=== PATIENT | female | born 1930 | race Two or more races ===

== ENCOUNTER 2019-07-15 11:05 | Inpatient (IN) | payer OTHER ==
[~2019-07-15] VITALS: Ht 152.4 cm; Wt 54.4 kg
--- NOTE | 2019-07-15 11:14 | NUR ---
PTE ALERTA Y ORIENTADA. LLEGA A ILDA DE EMERGENCIAS EN AMBULANCIA ACOMPANADA DE FAMILIAR Y PARAMEDICO. FAMILIAR DE PACIENTE REFIERE QUE LA PACIENTE LLEGA A ILDA DE EMERGENCIAS YA QUE PRESENTO ALMITA CONVULSION A LAS 0940. FAMILIAR DE PACIENTE REFIERE QUE HACE DOS SEMANAS LA PACIENTE SUFRIO UN DERRAME CEREBRAL.
--- NOTE | 2019-07-15 14:36 | NUR ---
MS LOAIZA ORIENTA A PACIENTE Y FAMILIAR SOBRE ORDENES MEDICAS. COLECTA MUESTRAS DE LABORATORIO ORDENADAS BAJO MEDIDAS ASEPTICAS. PENDIENTE A RESULTADOS DE LABORATORIO Y LECTURA DE CT SCAN PARA RE-EVALUACION MEDICA.
--- NOTE | 2019-07-16 00:25 | NUR ---
SE RECIBE PTE ALERTA Y ORIENTADA X3 EN CAMA CON BARANDAS ELEVADAS. SE RECIBE PTE CONECTADA A MONITOR CARDIACO Y OXIMETRIA. SE RECIBE PTE CANALIZADA ARAEA NOE DE EDEMA Y DE ENROJECIMIENTO. PTE EN ESPERA DE RE EVALUACION MEDICA.
--- NOTE | 2019-07-16 07:19 | NUR ---
PACIENTE ALERTA Y ORIENTADA EN PERSONA, PRESENTA BUEN PATRON RESPIRATORIO Y NOE DE DOLOR. RECIBIENDO 0.9% NSS A 150 ML/HR, VENOPUNCION PATENTE Y NOE DE S/S DE FLEBITIS E INFILTRACION, PENDIENTE EVALUACION MEDICINA INTERNA CON E SEPULVEDA POR UTI Y DESHIDRATACION.
[2019-07-25] MEDS ORDERED: LEVAQUIN750 MG PO (09:20)
[2019-07-25] MEDS ORDERED: LOSARTAN-HCTZ1 EAC2 PO (09:27)
[2019-07-25] MEDS ORDERED: CARVEDILOL25 MG PO (09:27)
[2019-07-25] MEDS ORDERED: CLOPIDOGREL BIS75 MG PO (09:27)
[2019-07-25] MEDS ORDERED: KEPPRA500 MG PO (09:27)
[2019-07-25] MEDS ORDERED: BENADRYL50 MG PO (09:30)
== END 2019-07-25 13:34 | disposition home or self-care (01) | DRG 69 ==
LOC: ER 11:05 → MEDJ 07-16 11:00
PROVIDERS: ADMIT Internal Medicine
PROC: 0T9B70Z Drainage of Bladder with Drainage Device, Via Natural or Artificial Opening (ICD-10-PCS; 2019-07-16)
PROC: 4A12X4Z Monitoring of Cardiac Electrical Activity, External Approach (ICD-10-PCS; 2019-07-16)
PROC: 30233N1 Transfusion of Nonautologous Red Blood Cells into Peripheral Vein, Percutaneous Approach (ICD-10-PCS; 2019-07-17)
PROC: 4A033R1 Measurement of Arterial Saturation, Peripheral, Percutaneous Approach (ICD-10-PCS; 2019-07-18)
PROC: 3E0F7GC Introduction of Other Therapeutic Substance into Respiratory Tract, Via Natural or Artificial Opening (ICD-10-PCS; 2019-07-18)
PROC: BB24ZZZ Computerized Tomography (CT Scan) of Bilateral Lungs (ICD-10-PCS; 2019-07-19)
PROC: 0W9930Z Drainage of Right Pleural Cavity with Drainage Device, Percutaneous Approach (ICD-10-PCS; principal; 2019-07-20)
PROC: B246ZZZ Ultrasonography of Right and Left Heart (ICD-10-PCS; 2019-07-20)
DX: I67.82 Cerebral ischemia (principal); J96.01 Acute respiratory failure with hypoxia; I50.31 Acute diastolic (congestive) heart failure; N17.8 Other acute kidney failure; N39.0 Urinary tract infection, site not specified; G40.802 Other epilepsy, not intractable, without status epilepticus; I69.351 Hemiplegia and hemiparesis following cerebral infarction affecting right dominant side; B37.0 Candidal stomatitis; J90 Pleural effusion, not elsewhere classified; E87.2 Acidosis; J98.11 Atelectasis; I30.8 Other forms of acute pericarditis; I35.0 Nonrheumatic aortic (valve) stenosis; I11.0 Hypertensive heart disease with heart failure; I69.322 Dysarthria following cerebral infarction; I65.21 Occlusion and stenosis of right carotid artery; D63.8 Anemia in other chronic diseases classified elsewhere; R55 Syncope and collapse; E86.0 Dehydration; E87.8 Other disorders of electrolyte and fluid balance, not elsewhere classified; N39.8 Other specified disorders of urinary system; F43.22 Adjustment disorder with anxiety; Z66 Do not resuscitate

== ENCOUNTER 2019-11-12 09:38 | Inpatient (IN) | payer OTHER ==
[~2019-11-12] VITALS: Ht 154.9 cm; Wt 54.4 kg
[~2019-11-12 09:38] MED LIST: BENADRYL50 MG PO; CARVEDILOL25 MG PO; CLOPIDOGREL BIS75 MG PO; KEPPRA500 MG PO; LEVAQUIN750 MG PO; LOSARTAN-HCTZ1 EAC2 PO
[2019-11-12] MEDS ORDERED: FOLIC ACID0.8 M1 (09:54)
[2019-11-12] MEDS ORDERED: CRESTOR20 MG (09:55)
[2019-11-12] MEDS ORDERED: AMLODIPINE-OLM1 EAC3 (09:55)
--- NOTE | 2019-11-12 09:55 | NUR ---
FAMILIAR REFIERE DOLOR ABDOMINAL SANGRADO RECTAL DESDE ESTA MANANA SE JATIN S/V YSE UBIAC EN AREA DE OBSERVACION
--- NOTE | 2019-11-12 10:47 | NUR ---
EVALUADA POR EL SE ORIENTA SOBRE TRATAMIENTO MEDICO POR LE EXTRAE MUESTRAS DE RAMYA Y SE ENVIAN AL LABORATORIO. SE MANTIENE EN OBSERVACION.
--- NOTE | 2019-11-12 15:20 | NUR ---
PACIENTE ALERTA Y ORIENTADA POR REINA ESFERAS EN CAMA EN COMPANIA DE FAMILIAR. SE OBSERVA H/L PATENTE NOE DE EDEMA Y ENROJECIMIENTO. PENDIENTE ROHIT MUESTRA DE OCCULT BLOOD PARA RE-EVALUACION MEDICA.
--- NOTE | 2019-11-12 15:47 | NUR ---
SE ORIENTA PTE SOBRE MUESTRA PENDIENTE.SE EXTRAE MUESTRA BAJO MEDIDAS ASEPTICAS.
--- NOTE | 2019-11-12 16:46 | NUR ---
NOTA SE NOTIFICO AL S/V B/P 180/60 PULSO 97 RES.16 TEMP.99.1. NO TIENE DOLOR Y OXIGENACION 98 LUZ MARIA SANTOS LPN.
--- NOTE | 2019-11-12 16:53 | NUR ---
SE JATIN TUBOS PILOTOS PARA 3 UNIDADES DE PRBC'S FRACCIONADAS. SE LLAMA A BANCO DE RAMYA Y SE NOTIFICA A MR. JAYY ELDRIDGE PARA RECOGER TUBOS PILOTOS.
[2019-11-18] MEDS ORDERED: PROTONIX40 MG PO (08:02)
[2019-11-18] MEDS ORDERED: SEROQUEL25 MG PO (08:02)
== END 2019-11-18 11:36 | disposition home or self-care (01) | DRG 378 ==
LOC: ER 09:38 → SURH 20:29
PROVIDERS: ADMIT Student in an Organized Health Care Education/Training Program
PROC: 30233N1 Transfusion of Nonautologous Red Blood Cells into Peripheral Vein, Percutaneous Approach (ICD-10-PCS; 2019-11-13)
PROC: 0DJ08ZZ Inspection of Upper Intestinal Tract, Via Natural or Artificial Opening Endoscopic (ICD-10-PCS; principal; 2019-11-16)
DX: K26.0 Acute duodenal ulcer with hemorrhage (principal); D62 Acute posthemorrhagic anemia; I69.351 Hemiplegia and hemiparesis following cerebral infarction affecting right dominant side; I10 Essential (primary) hypertension; K92.0 Hematemesis; G30.0 Alzheimer's disease with early onset; F02.80 Dementia in other diseases classified elsewhere, unspecified severity, without behavioral disturbance, psychotic disturbance, mood disturbance, and anxiety

== ENCOUNTER → 2019-12-18 | Emergency (ER) | payer OTHER ==
[~2019-12-18] VITALS: Ht 149.9 cm; Wt 43.1 kg
[~2019-12-18] MED LIST changes: +AMLODIPINE-OLM1 EAC3; +CRESTOR20 MG; +FOLIC ACID0.8 M1; +PROTONIX40 MG PO; +SEROQUEL25 MG PO
== END | disposition home or self-care (01) ==
LOC: ER 01:46
DX: S72.141A Displaced intertrochanteric fracture of right femur, initial encounter for closed fracture (principal); S80.01XA Contusion of right knee, initial encounter; W18.39XA Other fall on same level, initial encounter; Y93.89 Activity, other specified; Y92.098 Other place in other non-institutional residence as the place of occurrence of the external cause; Y99.8 Other external cause status

== ENCOUNTER → 2020-03-09 | Emergency (ER) | payer OTHER ==
[~2020-03-09] VITALS: Ht 152.4 cm; Wt 45.4 kg
[~2020-03-09] MED LIST changes: +AMBIEN5 MG; +CELEXA10 MG; +LEVOTHYROXINE25 MCG; +NORVASC10 MG; +PLAVI; +SYNTHROID50 MCG; +[UNRECOGNIZED DRUG - OTHER]
== END | disposition designated cancer center or children's hospital (05) ==
LOC: ER 16:21
DX: S06.5X0A Traumatic subdural hemorrhage without loss of consciousness, initial encounter (principal); S90.01XA Contusion of right ankle, initial encounter; S80.01XA Contusion of right knee, initial encounter; D64.89 Other specified anemias; I10 Essential (primary) hypertension; W18.09XA Striking against other object with subsequent fall, initial encounter; Y93.89 Activity, other specified; Y92.128 Other place in nursing home as the place of occurrence of the external cause; Y99.8 Other external cause status

== ENCOUNTER 2020-06-27 11:14 | Emergency (ER) | payer OTHER ==
[~2020-06-27] VITALS: Ht 121.9 cm; Wt 43.1 kg
== END 2020-06-27 17:44 | disposition home or self-care (01) ==
LOC: ER 11:14
DX: R11.10 Vomiting, unspecified (principal)